=== PATIENT | female | born 2000 ===

== ENCOUNTER → 2019-02-04 | Outpatient (CLI) | payer BC ==
[2019-02-04 11:37] LABS: Beta HCG, Quantitative < 1 mlU/mL (1-3)
[2019-02-04 11:41] LABS: Follicle Stimulating Hormone 8.1 IU/L (SEE BELOW)
[2019-02-04 11:42] LABS: Leuteinizing Hormone 16.8 IU/L
[2019-02-05 08:06] LABS: RPR Non Reactive (Non Reactive)
== END | disposition home or self-care (01) ==
LOC: LAB 09:59
PROVIDERS: ATTEND Obstetrics & Gynecology
DX: N92.6 Irregular menstruation, unspecified (principal); Z20.2 Contact with and (suspected) exposure to infections with a predominantly sexual mode of transmission
CPT/HCPCS: 36415; 82670; 83001; 83002; 84403; 84443; 84702; 86592; 86703